=== PATIENT | male | born 1955 | race Caucasian/White ===

== ENCOUNTER → 2020-07-06 | Outpatient (CLI) | payer OTHER ==
--- NOTE | 2020-07-06 18:30 | CARD ---
MR#: [id number] Date of Study: 07/06/2020 Ordering Physician: AMEYA APARICIO, Referring Physician: AMEYA APARICIO, Tech: Michaelle Leung APPROVED REPORT EXAM: Two-dimensional and M-mode echocardiogram with Doppler and color Doppler. Other Information Quality : AverageHR: 80bpm INDICATION Cardiac Disease: CAD RISK FACTORS Hypertension Hyperlipidemia 2D DIMENSIONS RVDd3.9 (2.9-3.5cm)Left Atrium(2D)2.9 (1.6-4.0cm) IVSd1.4 (0.7-1.1cm)Aortic Root(2D)3.4 (2.0-3.7cm) LVDd4.6 (3.9-5.9cm)LVOT Diameter2.0 (1.8-2.4cm) PWd0.9 (0.7-1.1cm)LVDs3.1 (2.5-4.0cm) FS (%) 31.0 %SV56.1 ml LVEF(%)58.8 (>50%) Aortic Valve AoV Peak Quique.120.8cm/sAoV VTI22.8cm AO Peak GR.5.8mmHgLVOT Peak Quique.99.7cm/s LVOT VTI 19.38cmAO Mean GR.3mmHg CESILIA (VMAX)2.05ao9QFT (VTI)2.73cm2 Mitral Valve MV E Lyripgli20.0cm/sMV E Peak Gr.3mmHg MV DECEL [id number] A Woweytcs63.8cm/s MV E Mean Gr.1mmHgE/A Ratio0.6 Pulmonary Valve PV Peak Cnrwbjjx51.3cm/sPV Peak Grad.2mmHg Tricuspid Valve TR P. [id number]/sRAP [id number] TR Peak Gr.77ejHzVWYW36ihIx LEFT VENTRICLE The left ventricle is normal size. There is mild concentric left ventricular hypertrophy. The left ve ntricular systolic function is normal and the ejection fraction is within normal range. The Ejection Fraction is 50-55%. There is normal LV segmental wall motion. Transmitral Doppler flow pattern is Gra de I-abnormal relaxation pattern. RIGHT VENTRICLE The right ventricle is borderline dilated. There is normal right ventricular wall thickness. The righ t ventricular systolic function is normal. ATRIA The left atrium size is normal. The right atrium size is normal. The interatrial septum is intact wit h no evidence for an atrial septal defect or patent foramen ovale as noted on 2-D or Doppler imaging. AORTIC VALVE The aortic valve is normal in structure and function. Doppler and Color Flow revealed no significant aortic regurgitation. There is no significant aortic valvular stenosis. Calculated aortic valve area is 2.9 cm2 with maximum pressure gradient of 6 mmHg and mean pressure gradient of 3 mmHg. MITRAL VALVE The mitral valve is normal in structure and function. There is no evidence of mitral valve prolapse. There is no mitral valve stenosis. Doppler and Color Flow revealed no mitral valve regurgitation note d. TRICUSPID VALVE The tricuspid valve is normal in structure and function. Doppler and Color Flow revealed trace tricus pid regurgitation with an estimated PAP of 26 mmHg. There is no tricuspid valve stenosis. PULMONIC VALVE The pulmonic valve is not well visualized. Doppler and Color Flow revealed no pulmonic valvular regur gitation. There is no pulmonic valvular stenosis. GREAT VESSELS The aortic root is normal in size. The IVC was not visualized. PERICARDIAL EFFUSION There is no evidence of significant pericardial effusion. Critical Notification Critical Value: No <Conclusion> The left ventricular systolic function is normal and the ejection fraction is within normal range. Th e Ejection Fraction is 50-55%. There is normal LV segmental wall motion. Signed by : Ameya Aparicio, Electronically Approved : 07/06/2020 18:30:11
== END ==
LOC: ECHO 13:29
PROVIDERS: ATTEND Internal Medicine Cardiovascular Disease
DX: I25.10 Atherosclerotic heart disease of native coronary artery without angina pectoris (principal); I51.7 Cardiomegaly
CPT/HCPCS: 93306

== ENCOUNTER → 2021-01-14 | Outpatient (CLI) | payer MEDICARE ==
--- NOTE | 2021-01-14 17:13 | RAD ---
MR#: [id number] Date of Study: 01/14/2021 Ordering Physician: AMEYA APARICIO, Referring Physician: AMEYA APARICIO, Tech: Patricia Rubin RVT, [facility] APPROVED REPORT Patient Location: OUT-PATIENT Laterality:Bilateral Indications Grayscale images of the bilateral common carotid and external and internal carotid vessels demonstrat es mild diffuse atherosclerotic plaque and intimal hyperplasia. Based on spectral waveforms and colo r Doppler overall 0 to less than 50% stenosis of the bilateral internal carotid arteries. Normal ICA to CCA ratios bilaterally. Antegrade vertebral velocities within normal limits. Risk Factors Hypertension: Doppler Spectral Velocity Analysis Right Left pCCA 100/27 cm/spCCA 95/29 cm/s mCCA 95/27 cm/smCCA 106/30 cm/s dCCA 90/26 cm/sdCCA 110/43 cm/s ECA 79/21 cm/sECA 85/24 cm/s pICA 72/22 cm/spICA 73/20 cm/s Daquan 73/24 cm/smICA 54/24 cm/s dICA 72/32 cm/sdICA 72/36 cm/s Vert. 45/16 cm/sVert. 46/19 cm/s ICA/CCA 0.73ICA/CCA 0.77 Critical Notification Critical Value: No <Conclusion> 1. No significant carotid occlusive disease bilaterally Signed by : Ameya Aparicio, Electronically Approved : 01/14/2021 17:13:07
== END ==
LOC: US 10:16
PROVIDERS: ATTEND Internal Medicine Cardiovascular Disease
DX: I65.23 Occlusion and stenosis of bilateral carotid arteries (principal)
CPT/HCPCS: 93880

== ENCOUNTER → 2021-02-24 | Outpatient (CLI) | payer MEDICARE ==
--- NOTE | 2021-02-24 11:33 | RAD ---
Bilateral lower extremity arterial duplex ultrasound study for claudication and hypertension. TECHNIQUE AND FINDINGS: Real-time grayscale and color spectral Doppler evaluation of the arteries of lower extremities is performed. There is mild bilateral multifocal atherosclerosis. All arteries are patent with triphasic flow, and normal velocities. No sonographic evidence of hemodynamically significant stenosis in any distributio n. IMPRESSION: 1. Mild multifocal atherosclerosis with no sonographically discernible hemodynamically significant st enosis. Electronically signed by: Farooq Eddy MD (02/24/2021 11:31 AM) [id number]
== END ==
LOC: US 10:30
PROVIDERS: ATTEND Family Medicine
DX: I70.203 Unspecified atherosclerosis of native arteries of extremities, bilateral legs (principal)
CPT/HCPCS: 93925